=== PATIENT | male | born 1950 | race Caucasian/White ===

== ENCOUNTER → 2019-03-04 | Outpatient (CLI) | payer OTHER ==
[~2019-03-04] MED LIST: ALBU90OI; ASPI325 PO; ATENOLOL; CETI10; CHLOR; LISI20 PO; LISI5; OMEP20ER; SPIR50; WARF10; [UNRECOGNIZED DRUG - REMARK]
== END | disposition home or self-care (01) ==
LOC: LAB SHORT 10:21 → LAB 10:21
DX: L08.0 Pyoderma (principal)
CPT/HCPCS: 87070; 87205

== ENCOUNTER → 2021-01-19 | Outpatient (CLI) | payer MEDICARE ==
[2021-01-19 16:31] LABS: BASOPHILS ABSOLUTE AUTO 0.06 K/mm3 (0.00-0.23); BASOPHILS PERCENT AUTO 1 % (0-2); EOSINOPHILS ABSOLUTE AUTO 0.31 K/mm3 (0.00-0.68); EOSINOPHILS PERCENT AUTO 5 % (0-6); Hematocrit 24.7 % (37.0-53.0); Hemoglobin 8.4 g/dL (13.5-17.5); IMMATURE GRAN ABSOLUTE AUTO 0.04 K/mm3 (0.00-0.10); IMMATURE GRAN PERCENT AUTO 1 % (0-1); LYMPHOCYTES ABSOLUTE AUTO 1.36 K/mm3 (0.84-5.20); LYMPHOCYTES PERCENT AUTO 22 % (21-46); MONOCYTES ABSOLUTE AUTO 0.88 K/mm3 (0.16-1.47); MONOCYTES PERCENT AUTO 14 % (4-13); Mean Corpuscular HGB 31.5 pg (26.0-34.0); Mean Corpuscular Volume 93 fL (80-100); Mean Platelet Volume 10.2 fL (9.1-12.4); NEUTROPHILS PERCENT AUTO 58 % (41-73); Platelet Count 272 K/mm3 (150-400); RDW Coefficient Variation 15.8 % (11.7-14.2); RDW Standard Deviation 52.9 fL (35.1-46.3); Red Blood Cell Count 2.67 M/mm3 (4.30-5.90); White Blood Cell Count 6.25 K/mm3 (4.00-11.30)
[2021-01-19 16:41] LABS: Albumin, Blood 2.3 g/dL (3.4-5.0); Albumin/Globulin Ratio 0.7 (0.8-1.8); Bilirubin, Total 0.2 mg/dL (0.1-1.0); Bun/Creatinine Ratio 14.2 (12.0-20.0); Calcium, Blood 8.5 mg/dL (8.5-10.1); Creatinine, Blood 1.27 mg/dL (0.60-1.20); Globulin, Blood 3.2 g/dL (2.2-4.0); Potassium, Blood 4.8 mmol/L (3.5-5.5); Total Protein, Blood 5.5 g/dL (6.4-8.2)
== END | disposition home or self-care (01) ==
LOC: LAB 14:20 → LAB SHORT 14:20
PROVIDERS: Nurse Practitioner Family
DX: R29.898 Other symptoms and signs involving the musculoskeletal system (principal); F32.0 Major depressive disorder, single episode, mild
CPT/HCPCS: 80053; 85025

== ENCOUNTER → 2021-01-26 | Outpatient (CLI) | payer MEDICARE ==
[2021-01-26 16:37] LABS: Hematocrit 25.1 % (37.0-53.0); Hemoglobin 8.5 g/dL (13.5-17.5); Mean Corpuscular HGB 31.4 pg (26.0-34.0); Mean Corpuscular HGB Conc 33.9 g/dL (31.5-36.5); Mean Corpuscular Volume 93 fL (80-100); Mean Platelet Volume 10.5 fL (9.1-12.4); Platelet Count 153 K/mm3 (150-400); RDW Coefficient Variation 15.7 % (11.7-14.2); RDW Standard Deviation 52.2 fL (35.1-46.3); Red Blood Cell Count 2.71 M/mm3 (4.30-5.90); White Blood Cell Count 4.87 K/mm3 (4.00-11.30)
[2021-01-26 16:53] LABS: Alanine Aminotransfer (ALT/SGP 25 U/L (12-78); Albumin, Blood 2.5 g/dL (3.4-5.0); Albumin/Globulin Ratio 0.7 (0.8-1.8); Alk Phos 151 U/L (50-136); Anion Gap 12 mmol/L (6-16); Aspartate Aminotrans (AST/SGOT 30 U/L (12-37); Bilirubin, Total 0.3 mg/dL (0.1-1.0); Blood Urea Nitrogen 15 mg/dL (8-24); Bun/Creatinine Ratio 12.9 (12.0-20.0); CHOL/HDL RATIO 1.9; CO2, Blood 21 mmol/L (21-32); Calcium, Blood 8.5 mg/dL (8.5-10.1); Chloride, Blood 94 mmol/L (98-108); Cholesterol 120 mg/dL (50-200); Creatinine, Blood 1.16 mg/dL (0.60-1.20); Ferritin, Serum 247 ng/mL (26-388); Globulin, Blood 3.4 g/dL (2.2-4.0); Glomerular Filtration Rate >60 (60-); Glucose, Blood 68 mg/dL (70-99); HDL Cholesterol 64 mg/dL (>39); Iron Serum 74 ug/dL (65-175); LDL/HDL RATIO 0.7; Low Density Lipoprotein Chol 46 mg/dL (0-110); Percent Saturation 48.1 % (20.0-50.0); Potassium, Blood 4.6 mmol/L (3.5-5.5); Sodium, Blood 127 mmol/L (136-145); Total Iron Binding Capacity 154 ug/dL (250-450); Total Protein, Blood 5.9 g/dL (6.4-8.2); Triglycerides 48 mg/dL (30-160); Very Low Density Lipoprot Chol 9 mg/dL (6-32)
[2021-01-26 17:09] LABS: BASOPHILS PERCENT MAN 0 % (0-2); EOSINOPHILS ABSOLUTE MAN 0.29 K/mm3 (0.00-0.68); EOSINOPHILS PERCENT MAN 6 % (0-6); LYMPHOCYTES ABSOLUTE MAN 1.26 K/mm3 (0.84-5.20); LYMPHOCYTES PERCENT MAN 26 % (21-46); MONOCYTES ABSOLUTE MAN 0.38 K/mm3 (0.16-1.47); MONOCYTES PERCENT MAN 8 % (4-13); NEUTROPHILS ABSOLUTE MAN 2.92 K/mm3 (1.96-9.15); SEG NEUTROPHILS PERCENT MAN 60 % (41-73); TOTAL CELLS COUNTED 100
== END | disposition home or self-care (01) ==
LOC: LAB 15:41 → LAB SHORT 15:41
PROVIDERS: Nurse Practitioner Family
DX: Z13.220 Encounter for screening for lipoid disorders (principal); I12.9 Hypertensive chronic kidney disease with stage 1 through stage 4 chronic kidney disease, or unspecified chronic kidney disease; N18.30 Chronic kidney disease, stage 3 unspecified; D63.1 Anemia in chronic kidney disease; E87.1 Hypo-osmolality and hyponatremia; E88.09 Other disorders of plasma-protein metabolism, not elsewhere classified
CPT/HCPCS: 80053; 80061; 82728; 83540; 83550; 85025

== ENCOUNTER 2021-04-01 17:54 | Emergency (ER) | payer MEDICARE ==
[~2021-04-01] VITALS: Ht 185.4 cm; Wt 117.9 kg
[2021-04-01 18:44] LABS: Alanine Aminotransfer (ALT/SGP 32 U/L (12-78); Albumin, Blood 2.5 g/dL (3.4-5.0); Albumin/Globulin Ratio 0.7 (0.8-1.8); Alk Phos 200 U/L (50-136); Anion Gap 13 mmol/L (6-16); Aspartate Aminotrans (AST/SGOT 63 U/L (12-37); Bilirubin, Total 0.7 mg/dL (0.1-1.0); Blood Urea Nitrogen 14 mg/dL (8-24); CO2, Blood 23 mmol/L (21-32); Calcium, Blood 8.5 mg/dL (8.5-10.1); Chloride, Blood 93 mmol/L (98-108); Creatinine, Blood 0.93 mg/dL (0.60-1.20); Globulin, Blood 3.5 g/dL (2.2-4.0); Glomerular Filtration Rate >60 (60-); Glucose, Blood 73 mg/dL (70-99); Potassium, Blood 4.5 mmol/L (3.5-5.5); Sodium, Blood 129 mmol/L (136-145)
[2021-04-01 18:57] LABS: Source, Urine Clean Catch
[2021-04-01 19:01] LABS: Appearance, Urine Clear (Clear); Bilirubin, Urine Neg (Neg); Blood, Urine Neg (Neg); Color, Urine Yellow (P-Yellow); Glucose Qualitative, Urine Neg (Neg); Ketones, Urine Neg (Neg); Leukocyte Esterase, Urine 3+ (Neg); Nitrite, Urine Neg (Neg); Protein, Urine Neg (Neg); Urobilinogen, Urine NORM (Normal)
[2021-04-01 19:16] LABS: Bacteria Many /hpf; Red Blood Cells, Urine 0-2 /hpf (0-2); Squamous Epithelial Cells Rare /hpf (Few)
[2021-04-01 20:03] LABS: BASOPHILS ABSOLUTE AUTO 0.08 K/mm3 (0.00-0.23); BASOPHILS PERCENT AUTO 1 % (0-2); EOSINOPHILS ABSOLUTE AUTO 0.61 K/mm3 (0.00-0.68); EOSINOPHILS PERCENT AUTO 9 % (0-6); Hematocrit 28.7 % (37.0-53.0); Hemoglobin 10.2 g/dL (13.5-17.5); IMMATURE GRAN ABSOLUTE AUTO 0.04 K/mm3 (0.00-0.10); IMMATURE GRAN PERCENT AUTO 1 % (0-1); LYMPHOCYTES ABSOLUTE AUTO 1.03 K/mm3 (0.84-5.20); LYMPHOCYTES PERCENT AUTO 15 % (21-46); MONOCYTES ABSOLUTE AUTO 0.96 K/mm3 (0.16-1.47); MONOCYTES PERCENT AUTO 14 % (4-13); Mean Corpuscular HGB 32.9 pg (26.0-34.0); Mean Corpuscular HGB Conc 35.5 g/dL (31.5-36.5); Mean Corpuscular Volume 93 fL (80-100); Mean Platelet Volume 10.6 fL (9.1-12.4); NEUTROPHILS ABSOLUTE AUTO 4.02 K/mm3 (1.96-9.15); NEUTROPHILS PERCENT AUTO 60 % (41-73); Platelet Count 218 K/mm3 (150-400); RDW Coefficient Variation 16.9 % (11.7-14.2); RDW Standard Deviation 56.8 fL (35.1-46.3); White Blood Cell Count 6.74 K/mm3 (4.00-11.30)
[2021-04-01] MEDS ORDERED: CEFP200 PO (21:04)
== END 2021-04-01 23:00 | disposition home or self-care (01) ==
LOC: ER 17:54
PROVIDERS: Emergency Medicine
DX: R53.1 Weakness (principal); N39.0 Urinary tract infection, site not specified; B35.4 Tinea corporis; I10 Essential (primary) hypertension; E11.9 Type 2 diabetes mellitus without complications; J44.9 Chronic obstructive pulmonary disease, unspecified; L89.90 Pressure ulcer of unspecified site, unspecified stage; Z88.0 Allergy status to penicillin
CPT/HCPCS: 36415; 80053; 81001; 85025; 87086; 93005; 93010; 96365; 99285-25; A9270; J0696

== ENCOUNTER 2021-05-04 14:11 | Inpatient (IN) | payer MEDICARE ==
[~2021-05-04] VITALS: Ht 170.2 cm; Wt 94.4 kg
[~2021-05-04 14:11] MED LIST changes: +CEFP200 PO
[2021-05-04 14:59] LABS: Source, Urine Catheter
[2021-05-04 15:06] LABS: Appearance, Urine Clear (Clear); Bilirubin, Urine Neg (Neg); Blood, Urine 2+ (Neg); Color, Urine Yellow (P-Yellow); Glucose Qualitative, Urine Neg (Neg); Ketones, Urine 1+ (Neg); Leukocyte Esterase, Urine 2+ (Neg); Nitrite, Urine Neg (Neg); Protein, Urine 1+ (Neg); Specific Gravity, Urine 1.015 (1.003-1.022); Urobilinogen, Urine NORM (Normal)
[2021-05-04 15:28] LABS: Alanine Aminotransfer (ALT/SGP 41 U/L (12-78); Albumin/Globulin Ratio 0.5 (0.8-1.8); Alk Phos 317 U/L (50-136); Anion Gap 16 mmol/L (6-16); Aspartate Aminotrans (AST/SGOT 61 U/L (12-37); Bilirubin, Total 0.8 mg/dL (0.1-1.0); Blood Urea Nitrogen 40 mg/dL (8-24); Bun/Creatinine Ratio 19.7 (12.0-20.0); CO2, Blood 18 mmol/L (21-32); CPK Creatine Kinase 32 U/L (39-308); Calcium, Blood 8.1 mg/dL (8.5-10.1); Chloride, Blood 88 mmol/L (98-108); Creatinine, Blood 2.03 mg/dL (0.60-1.20); Ethanol (Alcohol), Blood, Med <3 mg/dL; Glomerular Filtration Rate 33 (60-); Glucose, Blood 112 mg/dL (70-99); Magnesium, Blood 2.5 mg/dL (1.6-2.4); Phosphorus, Blood 4.1 mg/dL (2.5-4.9); Potassium, Blood 5.8 mmol/L (3.5-5.5); Sodium, Blood 122 mmol/L (136-145); Troponin I <0.015 ng/mL (0.000-0.040)
[2021-05-04 15:29] LABS: Creatine Kinase MB <1.0 ng/mL (0.0-3.6); Creatine Kinase MB Index Unable to Calculate (0.0-4.0)
[2021-05-04 15:37] LABS: Bacteria Few /hpf; Renal Epithelial Rare /hpf (0-Rare); Squamous Epithelial Cells Mod /hpf (Few); WBC Cast 0-2 /lpf (0)
[2021-05-04 16:16] LABS: U Amphetamine Screen Not Detected; U Barbituate Screen Not Detected; U Benzodiazapine Screen Not Detected; U Buprenorphine Screen Not Detected; U Cannabinoids Screen Not Detected; U Cocaine Screen Not Detected; U Methadone Screen Not Detected; U Methamphetamine Screen Not Detected; U Opiates Screen Not Detected; U Oxycodone Screen Not Detected; U Phencyclidine Screen Not Detected; U Propoxyphene Screen Not Detected
[2021-05-04 16:24] LABS: SARS-Cov-2 (COVID-19) PCR, MMC NEGATIVE (NEGATIVE)
[2021-05-04 17:44] LABS: BASOPHILS ABSOLUTE AUTO 0.03 K/mm3 (0.00-0.23); BASOPHILS PERCENT AUTO 0 % (0-2); EOSINOPHILS PERCENT AUTO 0 % (0-6); Hematocrit 22.7 % (37.0-53.0); Hemoglobin 7.8 g/dL (13.5-17.5); IMMATURE GRAN ABSOLUTE AUTO 0.23 K/mm3 (0.00-0.10); IMMATURE GRAN PERCENT AUTO 1 % (0-1); LYMPHOCYTES ABSOLUTE AUTO 0.32 K/mm3 (0.84-5.20); LYMPHOCYTES PERCENT AUTO 2 % (21-46); MONOCYTES ABSOLUTE AUTO 0.86 K/mm3 (0.16-1.47); MONOCYTES PERCENT AUTO 5 % (4-13); Mean Corpuscular HGB 33.8 pg (26.0-34.0); Mean Corpuscular HGB Conc 34.4 g/dL (31.5-36.5); Mean Corpuscular Volume 98 fL (80-100); Mean Platelet Volume 10.1 fL (9.1-12.4); NEUTROPHILS ABSOLUTE AUTO 15.23 K/mm3 (1.96-9.15); NEUTROPHILS PERCENT AUTO 91 % (41-73); Platelet Count 418 K/mm3 (150-400); RDW Coefficient Variation 16.9 % (11.7-14.2); RDW Standard Deviation 59.8 fL (35.1-46.3); Red Blood Cell Count 2.31 M/mm3 (4.30-5.90); White Blood Cell Count 16.67 K/mm3 (4.00-11.30)
[2021-05-04 23:40] LABS: Bun/Creatinine Ratio 19.1 (12.0-20.0); Calcium, Blood 7.2 mg/dL (8.5-10.1); Creatinine, Blood 2.09 mg/dL (0.60-1.20); Percent Saturation 9.3 % (20.0-50.0); Potassium, Blood 4.8 mmol/L (3.5-5.5)
[2021-05-05 03:22] LABS: Hematocrit 21.8 % (37.0-53.0); Hemoglobin 7.5 g/dL (13.5-17.5); Mean Corpuscular HGB 34.1 pg (26.0-34.0); Mean Corpuscular HGB Conc 34.4 g/dL (31.5-36.5); Mean Corpuscular Volume 99 fL (80-100); Platelet Count 453 K/mm3 (150-400); RDW Coefficient Variation 16.8 % (11.7-14.2)
[2021-05-05 03:39] LABS: BAND PERCENT MAN 10 % (0-8); BASOPHILS PERCENT MAN 0 % (0-2); EOSINOPHILS PERCENT MAN 0 % (0-6); LYMPHOCYTES PERCENT MAN 2 % (21-46); MONOCYTES ABSOLUTE MAN 0.76 K/mm3 (0.16-1.47); MONOCYTES PERCENT MAN 3 % (4-13); NEUTROPHILS ABSOLUTE MAN 24.13 K/mm3 (1.96-9.15); SEG NEUTROPHILS PERCENT MAN 85 % (41-73); TOTAL CELLS COUNTED 100
[2021-05-05 03:40] LABS: Albumin, Blood 1.6 g/dL (3.4-5.0); Albumin/Globulin Ratio 0.5 (0.8-1.8); Bilirubin, Total 0.6 mg/dL (0.1-1.0); Bun/Creatinine Ratio 19.4 (12.0-20.0); Calcium, Blood 7.8 mg/dL (8.5-10.1); Creatinine, Blood 2.11 mg/dL (0.60-1.20); Globulin, Blood 3.5 g/dL (2.2-4.0); Potassium, Blood 4.6 mmol/L (3.5-5.5); Total Protein, Blood 5.1 g/dL (6.4-8.2)
--- NOTE | 2021-05-05 06:00 | NUR ---
SHIFT SUMMARY PT. WAS A NEW ADMIT. DX WITH SEVERE SEPSIS. CAME IN WITH LOW B/P'S. IS A/OX3 AND FORGETFUL. HAS A PATEL WITH YELLOW/SUSANNA URINE. ON TELE AFIB IN LOW 100'S. UPPER EXT. AND LOWER EXT. WEAK PULSES. ABLE TO MOVE UPPER AND EXT AND UNABLE TO MOVE LOWER EXT. CAN ONLY WIGGLE TOES. IS ON BEDREST. REPOSITINED Q2HRS. HAS SEVERE WOUNDS ON BUTTOCK AREA, THIGHS AND LOWER EXTREMITIES. PICTURES AND MEASUREMENTS WERE TAKEN AND IN PT'S CHART. PT. WAS GIVEN A BEDBATH. CLEANED WOUNDS, DRIED SKIN, AND WOUND CARE WAS DONE. HAS DRESSINGS IN PLACE. PT. BP AND MAP WAS LOW THIS AM AND PT. CONT. TO BE TACHY. MD AWARE AND ORDERS WERE GIVEN.
[2021-05-05 06:57] LABS: Source, Urine Catheter
[2021-05-05 07:04] LABS: Appearance, Urine Clear (Clear); Bilirubin, Urine Neg (Neg); Blood, Urine Neg (Neg); Color, Urine Yellow (P-Yellow); Glucose Qualitative, Urine Neg (Neg); Ketones, Urine Neg (Neg); Leukocyte Esterase, Urine 1+ (Neg); Nitrite, Urine Neg (Neg); Protein, Urine Neg (Neg); Urobilinogen, Urine NORM (Normal)
[2021-05-05 07:14] LABS: Bacteria Rare /hpf; Calcium Oxalate Crystals Rare /hpf; Other Crystals Mod /hpf; Squamous Epithelial Cells Rare /hpf (Few); Uric Acid Crystals Few /hpf
--- NOTE | 2021-05-05 09:25 | NUR ---
Phone call recieved from APS regarding dishcarge planing. Pt being evicted from appartment. He has been qualified for medicaid. Will need placement at time of discharge. Notified care management of this update. APS foster care case manager name Amanda Garcia, .
--- NOTE | 2021-05-05 09:28 | NUR ---
pt laying in bed awake a/ox3, a bit forgetful, cooperative with care, follows commands well, denies pain unless moved, lungs are clear, dim in bases, resp even and unlabored, no cough noted, sats are 98-100% on r/a, hrirr, tele in place running afib per monitor, see strip, edema noted to b/l le, iv site to r and l ac's, infusing 1/2 ns at 100mls/hr, and precedex gtt titrating prn, b/p's are low, continually monitoring, picc line being placed for precedex gtt, btx4, abd round soft nontender, voids via pacheco cath draining clear yellow urine, skin has extensive wounds to buttocks and lower ext. moves upper ext well, unable to move lower ext., is wheelchair bound at home, lives alone, dressings are in place for lower ext and mepilex placed to coccyx, negro to left eye, is blind in right eye, call light in reach.
[2021-05-05 09:34] LABS: Bun/Creatinine Ratio 18.9 (12.0-20.0); Calcium, Blood 7.3 mg/dL (8.5-10.1); Creatinine, Blood 2.01 mg/dL (0.60-1.20); Potassium, Blood 4.5 mmol/L (3.5-5.5)
--- NOTE | 2021-05-05 12:10 | NUR ---
b/p is much better now, turned levaphed down to 6, continue to monitor and titrate. pt eating lunch. call light in reach.
--- NOTE | 2021-05-05 18:33 | NUR ---
leif feels cold most of the day and has many blankets on, room temp turned up. he has been shifted to the side with pillows, but doesn't tolerate it well, continues on levophed at 6, maintaining well. no further changes this shift. call light in reach.
[2021-05-05 19:33] LABS: Bun/Creatinine Ratio 19.6 (12.0-20.0); Calcium, Blood 7.2 mg/dL (8.5-10.1); Creatinine, Blood 1.89 mg/dL (0.60-1.20); Potassium, Blood 4.3 mmol/L (3.5-5.5)
[2021-05-06 05:17] LABS: BASOPHILS ABSOLUTE AUTO 0.01 K/mm3 (0.00-0.23); BASOPHILS PERCENT AUTO 0 % (0-2); EOSINOPHILS ABSOLUTE AUTO 0.19 K/mm3 (0.00-0.68); EOSINOPHILS PERCENT AUTO 1 % (0-6); Hemoglobin 6.2 g/dL (13.5-17.5); IMMATURE GRAN PERCENT AUTO 1 % (0-1); LYMPHOCYTES ABSOLUTE AUTO 1.33 K/mm3 (0.84-5.20); LYMPHOCYTES PERCENT AUTO 8 % (21-46); MONOCYTES ABSOLUTE AUTO 1.38 K/mm3 (0.16-1.47); MONOCYTES PERCENT AUTO 9 % (4-13); Mean Corpuscular HGB 34.6 pg (26.0-34.0); Mean Corpuscular Volume 99 fL (80-100); NEUTROPHILS ABSOLUTE AUTO 12.75 K/mm3 (1.96-9.15); NEUTROPHILS PERCENT AUTO 80 % (41-73); Platelet Count 375 K/mm3 (150-400); RDW Coefficient Variation 16.9 % (11.7-14.2); RDW Standard Deviation 61.1 fL (35.1-46.3); Red Blood Cell Count 1.79 M/mm3 (4.30-5.90); White Blood Cell Count 15.86 K/mm3 (4.00-11.30)
[2021-05-06 05:19] LABS: Hematocrit 17.7 % (37.0-53.0)
[2021-05-06 05:40] LABS: Albumin, Blood 1.3 g/dL (3.4-5.0); Albumin/Globulin Ratio 0.4 (0.8-1.8); Bilirubin, Total 0.4 mg/dL (0.1-1.0); Bun/Creatinine Ratio 20.7 (12.0-20.0); Creatinine, Blood 1.69 mg/dL (0.60-1.20); Globulin, Blood 2.9 g/dL (2.2-4.0); Potassium, Blood 3.8 mmol/L (3.5-5.5); Total Protein, Blood 4.2 g/dL (6.4-8.2)
--- NOTE | 2021-05-06 06:06 | NUR ---
LYING IN SEMI FOWLERS WITH BOTH HIPS FLOATED ON PILLOWS. REMAINS AAO X3 WITH MILD CONFUSION AT TIMES. STARTED OUT THE NIGHT APPREAING SAD AND POSS WITHDRAWN. BY END OF SHIFT PT IS TELLING JOKES AND SPEAKING ABOUT HIS MOM WHO WAS A NURSE IN [place] IN THE . DRESSINGS TO BLE AND SACRUM REMAIN INTACT. AM LABS DRAWN FROM PICC LINE USING STERILE TECHNIQUE, TOLERATED WELL. CRITICAL LOW HCT OF 17.7, HGB OF 6.2. PT INFORMED NURSING THAT HE WILL NOT BE ABLE TO RECIEVED ANY BLOOD OR BLOOD PRODUCTS DUE TO BEING A JEHOVA'S WITNESS. DR. GAN CONTACTED AND GIVEN CRITICAL VALUE AND INFORMED OF WHAT PT STATED. NO NEW ORDERS NOTED. PT REMAINS COLD AND IS COVERED BY SEVERAL BLANKETS FOR COMFORT. DENIES PAIN, DISCOMFORT, OR FURTHER NEEDS AT THIS TIME. SAFETY MEASURES IN PLACE. WILL CONTINUE TO MONITOR AND GIVE HAND OFF TO ONCOMING SHIFT USING SBAR DURING BEDSIDE REPORT.
[2021-05-06 10:39] LABS: Percent Saturation 38.5 % (20.0-50.0)
[2021-05-06 14:28] LABS: Vancomycin, Trough 21.4 ug/mL (5.0-10.0)
--- NOTE | 2021-05-06 17:48 | NUR ---
SUMMARY PT SITTING UP IN BED, JUST FINISHED HIS DINNER, POOR APPETITE, PT REMAINS ON PRESSORS, CONT TO DECLINE ANY BLOOD PRODUCTS, NO S/S BLEEDING, PT HAS HAD SEVERAL LOOSE LIQUID STOOLS, DARK BROWN, NO S/S BLOOD, RECTAL TUBE PLACED, PT ERNESTO WELL, UPDATED PT'S FRIEND ON THE PHONE PER HIS REQUEST, PT'S TANISHA AREA AND BACKSIDE REMAIN EXCORIATED, PT MED PER EMAR FOR C/O PAIN, DENIES ANY SOB, WILL CONT TO MONITOR
[2021-05-06 20:58] LABS: Stool Occult Blood Guaiac 1 Neg (Neg)
--- NOTE | 2021-05-06 22:03 | NUR ---
ASSUMED CARE OF PT AT 1900. PER PT HE HAS A HEADACHE, AND MODERATELY ANXIOUS, NOTED TREMORS IN BL ARMS - CIWA 13. ADMINISTERING PRN ATIVAN AND REASSESS PER ORDER.
--- NOTE | 2021-05-07 00:28 | NUR ---
ATTEMPTED TO REASSESS CIWA AND PATIENT WAS ASLEEP. WILL MONITOR FOR CONTINUED SYMPTOMS.
[2021-05-07 03:53] LABS: BASOPHILS ABSOLUTE AUTO 0.01 K/mm3 (0.00-0.23); BASOPHILS PERCENT AUTO 0 % (0-2); EOSINOPHILS ABSOLUTE AUTO 0.28 K/mm3 (0.00-0.68); EOSINOPHILS PERCENT AUTO 4 % (0-6); Hematocrit 25.1 % (37.0-53.0); Hemoglobin 8.5 g/dL (13.5-17.5); IMMATURE GRAN ABSOLUTE AUTO 0.12 K/mm3 (0.00-0.10); IMMATURE GRAN PERCENT AUTO 2 % (0-1); LYMPHOCYTES ABSOLUTE AUTO 1.03 K/mm3 (0.84-5.20); LYMPHOCYTES PERCENT AUTO 13 % (21-46); MONOCYTES ABSOLUTE AUTO 0.85 K/mm3 (0.16-1.47); MONOCYTES PERCENT AUTO 11 % (4-13); Mean Corpuscular HGB 33.7 pg (26.0-34.0); Mean Corpuscular HGB Conc 33.9 g/dL (31.5-36.5); Mean Corpuscular Volume 100 fL (80-100); Mean Platelet Volume 8.9 fL (9.1-12.4); NEUTROPHILS ABSOLUTE AUTO 5.72 K/mm3 (1.96-9.15); NEUTROPHILS PERCENT AUTO 71 % (41-73); Platelet Count 331 K/mm3 (150-400); RDW Coefficient Variation 16.4 % (11.7-14.2); RDW Standard Deviation 59.7 fL (35.1-46.3); Red Blood Cell Count 2.52 M/mm3 (4.30-5.90); White Blood Cell Count 8.01 K/mm3 (4.00-11.30)
[2021-05-07 04:09] LABS: Albumin, Blood 1.4 g/dL (3.4-5.0); Anion Gap 8 mmol/L (6-16); Blood Urea Nitrogen 29 mg/dL (8-24); Bun/Creatinine Ratio 22.1 (12.0-20.0); CO2, Blood 22 mmol/L (21-32); Chloride, Blood 94 mmol/L (98-108); Creatinine, Blood 1.31 mg/dL (0.60-1.20); Glomerular Filtration Rate 54 (60-); Glucose, Blood 88 mg/dL (70-99); Phosphorus, Blood 1.8 mg/dL (2.5-4.9); Potassium, Blood 3.5 mmol/L (3.5-5.5); Sodium, Blood 124 mmol/L (136-145)
--- NOTE | 2021-05-07 05:53 | NUR ---
Patient a/ox4 but forgetful. Flat affect. Chronic alcohol use (3-4 glasses of wine/whiskey a day). CIWA implemented d/t increase in symptoms. Fine crackles on top and dim in bases, 100% on RA. Afib avg 95
--- NOTE | 2021-05-07 06:25 | NUR ---
Patient given PRN fentanyl in hopes of being able to reposition and change pad underneath him. Patient states the pain is still 7/10 and would like not to be repositioned to and hopes today they will find another way to make him comfortable.
--- NOTE | 2021-05-07 09:34 | NUR ---
UPDATE PT REFUSED TO HAVE BED LAY BACK AND TURN PT TO HAVE BACKSIDE CLEANED OF LIQUID STOOL. PT WAS INFORMED OF THE RISK IF FURTHER SKIN BREAKDOWN AND INFECTION RISK. PT STILL REFUSED TO BE TURNED. RECTAL TUBE IN PLACE DRAINING TO GRAVITY WITH SOME LEAKAGE OUT OF ANUS. DISPOSABLE CHUCKS PLACED UNDER PT FRONT FRONT AND SHOVED UNDER PT TOLERATED FOR SOME ABSORBTION OF THE LIQUID STOOL. SCROTOM IS SWOLLEM. PT ASKED NURSE TO INFORM HABITAT MANAGEMENT COORDINATOR NOT TO TRY AND TURN PT EVERY 2 HOURS. INFORMATION WILL FORWARDED TO HABITAT MANAGEMENT COORDINATOR.
--- NOTE | 2021-05-07 18:31 | NUR ---
SHIFT SUMMARY PT IS A/OX4; SLOW TO RESPOND WITH FLAT AFFECT. PT REFUSED Q2 TURNS ALL SHIFT DUE TO PAIN OF HIS LOWER BODY; LEGS, HIPS, AND BUTTOCKS. PT REMAINED IN AFIB WITH HR RANGING 90-100'S. PT O2 SATS >100% ON ROOM AIR T/O SHIFT. PT LEVOPHED AT 10 T/O SHIFT. PT VSS T/O SHIFT. CIWA SCORES RANGED 2-5 T/O SHIFT. PT PAIN TREATMENT WAS NOT THERAPEUTIC; DISCUSSED WITH DR NOLAN WHO UPPED THE DOSE OF FENTANYL TO 50-100MCG Q3. THIS RN DISCUSSED WITH PT ABOUT THE SURGICAL DR COMING BY TOMORROW FOR AN ASSESSMENT OF HIS SACRAL AREA WITH PT BEING PREMEDICATED FOR PAIN; PT RESPONDED "WE CAN TRY." STOOL COLLECTED AND SENT TO LAB FOR CHECK FOR C-DIF; AWAITING RESULTS. PT HAS BILATERAL +3 EDEMA OF LOWER EXTREMITIES. PT HAS PATEL DRAINING TO GRAVITY; YELLOW URINE. PT HAS RECTAL TUBE DRAINING TO GRAVITY; DARK BROWN LIQUID STOOL. BOWELS ARE VERY HYPERACTIVE. PT STATED THAT MEDICAL STAFF CAN UPDATE MAIDA MIRZA, CLOSE PERSONAL FRIEND, ON "ALL MEDICAL INFORMATION." APLLIATIVE NURSE, NANCY, INFORMED OF PT SITUATION AND THE NEED OF PLACEMENT FOR HOUSING UPON DISCHARGE DUE TO PT BEING EVICTED FROM PLACE OF RESIDENCE.
--- NOTE | 2021-05-07 19:42 | NUR ---
Assumed care of patient at 1900. Report showed patient still refused turns despite increased Fentanyl dosage. Explained the need to turn him as his rectal tube is dislodged, and has open wounds on buttocks/coccyx.
--- NOTE | 2021-05-07 20:00 | NUR ---
Patient refused to allow surgical consult to look at wounds today on dayshift or allow turning and cleaning (flexiseal leak). Asked the patient if he would like to see the pictures of his wounds since he is unable to look, he wanted to see them. Reinforced the need to turn and clean the wounds & feces and the risk of further infection and extending LOS in the hospital. Patient agreed as long as pain can be adequately controlled before.
--- NOTE | 2021-05-07 20:01 | NUR ---
Spoke to Dr. Kiran who ordered Dilaudid 2mg IV q2p. If BP falls - switch back to the Fentanyl 100mcg order.
[2021-05-07 21:10] LABS: C DIFFICILE DNA NEGATIVE (Negative)
--- NOTE | 2021-05-07 22:34 | NUR ---
Patient was given the 2mg Dilaudid as ordered, complete bed change and wound cleaning/bandaging done. About an hour in the patient began having respiratory depression and Narcan was administered. Called Dr. Kiran and MANDO Mendez and keep Fentanyl for the future and a new PRN order for Narcan.
[2021-05-08 03:43] LABS: Hematocrit 17.1 % (37.0-53.0); Hemoglobin 5.7 g/dL (13.5-17.5)
--- NOTE | 2021-05-08 03:52 | NUR ---
Patients H&H came back critically low. Hgb: 5.7 and Hct:17.1. Patient has refused blood transfusion d/t being of the Jehavoah's Witness artie.
[2021-05-08 04:04] LABS: Albumin, Blood 1.5 g/dL (3.4-5.0); Anion Gap 9 mmol/L (6-16); Blood Urea Nitrogen 24 mg/dL (8-24); Bun/Creatinine Ratio 23.1 (12.0-20.0); CO2, Blood 22 mmol/L (21-32); Calcium, Blood 7.1 mg/dL (8.5-10.1); Chloride, Blood 93 mmol/L (98-108); Creatinine, Blood 1.04 mg/dL (0.60-1.20); Glomerular Filtration Rate >60 (60-); Glucose, Blood 104 mg/dL (70-99); Magnesium, Blood 1.9 mg/dL (1.6-2.4); Phosphorus, Blood 2.7 mg/dL (2.5-4.9); Potassium, Blood 3.5 mmol/L (3.5-5.5); Sodium, Blood 124 mmol/L (136-145); Uric Acid, Blood 7.4 mg/dL (3.5-7.2)
--- NOTE | 2021-05-08 04:15 | NUR ---
Patient is a/ox4 but forgetful at times. Patient reports still having major pain on his buttocks and legs, post-dilaudid and narcan the patient was able to sleep for a few hours which he hasn't been able to do in awhile according to him. Still refuses q2 turns. Afib avg 100. SBP has been 90's-100's on 14 of (titrated up from 10 at beginning of shift). Bilateral lower extremity pitting edema still +3 with +1 faint pedal pulses. Borboryghmi noted and less liquid stool compared to yesterday and more semi-solid. Granda draining to gravity yellow/clear urine but greatly decreased amount. H&H critically low, but patient refuses blood products d/t sabianist reasons.
--- NOTE | 2021-05-08 08:17 | NUR ---
UPDATE PT REFUSED Q2 TURNS. THIS RN ASKED IF IT WAS SOMETHING WE COULD TRY TODAY AND PT SAID "I WOULD RATHER NOT." PT WAS INFORMED THAT THE SURGICAL DR MAY COME BY TODAY AND THAT WE CAN PRE-MEDICATE FOR PAIN, PT IS RECEPTIVE TO THE SURGICAL DR COMING BY.
--- NOTE | 2021-05-08 09:55 | NUR ---
BLOOD ORDER CANCELELD THIS RN CALLED DR NOLAN AT 0907 ABOUT PT HAVING BLOOD ORDERED. DR NOLAN INFORMED THIS RN THAT SHE HAS CANCELED THE ORDER DUE TO THE PT BEING A JEHOVAH WITNESS. THIS RN CONTACTED BLOOD BANK AT 0974 TO INFORM THEM OF THE CANCELATION OF THE ORDER.
--- NOTE | 2021-05-08 14:11 | NUR ---
UPDATE AT 1050, DR LEDBETTER CALLED TO INFORM THIS RN THAT HE WAS HEADED TO PT ROOM IN ROUGHLY 10 MINUTES. PT WAS PRE-MEDICATED WITH 100MCG FENTANYL. PT PAIN LEVEL WAS REPORTED TO VERY LITTLE CHANGE AFTER FENTANYL WAS GIVEN. PT WAS ROLLED TO LEFT SIDE FOR DR LEDBETTER TO ASSESS SKIN BREAKDOWN OF SACRAL AREA AND LEGS. PT WAS LOUDLY VOCALIZING HIS PAIN BY SAYING "OW, OW, OW." PT WAS VERY VOCAL OF PAIN WITH SLIGHTEST MOVEMENT OF HIS RIGHT LEG. PT WOULD CALM WITH SOME REASSURANCE FROM NURSE. AFTER PT WOUNDS WERE COVERED WITH NON-ADHERANT BANDAGES, PT WAS ROLLED TO SUPINE POSITION. PILLOWS WERE PLACED UNDER PT TO RELEIVE SOME PRESSURE OFF OF SACRUM. PT LIMBS ELEVATED WITH PILLOWS. PT REPORTS "I FEEL BETTER THAN I DID."
--- NOTE | 2021-05-08 15:29 | NUR ---
UPDATE AT 1520, THIS RN CALLED DR NOLAN ABOUT PT PAIN THAT HAS PREVENTED GENERAL ADL CARE. DR NOLAN PLACED AN ORDER FOR 50MCG FENTANYL PATCH.
--- NOTE | 2021-05-08 17:52 | NUR ---
SHIFT SUMMARY PT A/OX4, SLOW TO RESPOND. PT BP STABLE T/O SHIFT WITH O2 SATS >97%, AFIB RANGING 110-130'S. PT PAIN HAS BEEN REPORTED CONSTANT, DR LARKIN ORDERED FENTANYL PATCH. SURGICAL DR GURROLA WAS ABLE TO COME ASSESS PT SACRAL WOUNDS AND LEG WOUNDS TODAY, PT REPORTED PAIN DURING ASSESSMENT. WOUNDS RE-DRESSED WITH NON-ADHERANT BANDAGES. PT STILL REFUSING TO BE TURNED DUE TO PAIN. LEVOPHED RUNNING AT 14. RECTAL TUBE INPLACE DRAINING TO GRAVITY; DARK BROWN LIQUID STOOL. PATEL IN PLACE DRAINING TO GRAVITY; YELLOW URINE.
--- NOTE | 2021-05-08 20:14 | NUR ---
Assumed care of patient at 1900. Patient has been increasingly more tachy in the 140-150's with chronic afib. SBP began dipping below 90, per emar increased Levo to 15 and maintaining above [address] Harris and digoxin and vasopressin ordered. Patients H&H critically low, but declines blood products d/t sabianism artie.
--- NOTE | 2021-05-09 03:53 | NUR ---
Temporarily disconnected pt from Levo line for a line draw. Patients BP drops to 68/46 (54) within 2 minutes for the draw. Restarted patient on the Levo running at 15 to help recover, then 5 minutes later dropped Levo to 13. VSS and MAP over 60.
[2021-05-09 03:55] LABS: BASOPHILS ABSOLUTE AUTO 0.01 K/mm3 (0.00-0.23); BASOPHILS PERCENT AUTO 0 % (0-2); EOSINOPHILS ABSOLUTE AUTO 0.38 K/mm3 (0.00-0.68); EOSINOPHILS PERCENT AUTO 4 % (0-6); Hematocrit 20.6 % (37.0-53.0); Hemoglobin 6.9 g/dL (13.5-17.5); IMMATURE GRAN ABSOLUTE AUTO 0.49 K/mm3 (0.00-0.10); IMMATURE GRAN PERCENT AUTO 6 % (0-1); LYMPHOCYTES ABSOLUTE AUTO 1.44 K/mm3 (0.84-5.20); LYMPHOCYTES PERCENT AUTO 16 % (21-46); MONOCYTES ABSOLUTE AUTO 1.04 K/mm3 (0.16-1.47); MONOCYTES PERCENT AUTO 12 % (4-13); Mean Corpuscular HGB 33.3 pg (26.0-34.0); Mean Corpuscular HGB Conc 33.5 g/dL (31.5-36.5); Mean Corpuscular Volume 100 fL (80-100); Mean Platelet Volume 8.8 fL (9.1-12.4); NEUTROPHILS ABSOLUTE AUTO 5.56 K/mm3 (1.96-9.15); NEUTROPHILS PERCENT AUTO 62 % (41-73); Platelet Count 376 K/mm3 (150-400); RDW Coefficient Variation 15.3 % (11.7-14.2); Red Blood Cell Count 2.07 M/mm3 (4.30-5.90); White Blood Cell Count 8.92 K/mm3 (4.00-11.30)
[2021-05-09 04:11] LABS: Albumin, Blood 1.4 g/dL (3.4-5.0); Anion Gap 8 mmol/L (6-16); Blood Urea Nitrogen 20 mg/dL (8-24); Bun/Creatinine Ratio 20.4 (12.0-20.0); CO2, Blood 24 mmol/L (21-32); Chloride, Blood 95 mmol/L (98-108); Creatinine, Blood 0.98 mg/dL (0.60-1.20); Glomerular Filtration Rate >60 (60-); Glucose, Blood 91 mg/dL (70-99); Magnesium, Blood 1.6 mg/dL (1.6-2.4); Phosphorus, Blood 2.1 mg/dL (2.5-4.9); Potassium, Blood 2.7 mmol/L (3.5-5.5); Sodium, Blood 127 mmol/L (136-145)
[2021-05-09 04:47] LABS: BAND PERCENT MAN 4 % (0-8); BASOPHILS PERCENT MAN 0 % (0-2); EOSINOPHILS ABSOLUTE MAN 0.26 K/mm3 (0.00-0.68); EOSINOPHILS PERCENT MAN 3 % (0-6); LYMPHOCYTES ABSOLUTE MAN 0.89 K/mm3 (0.84-5.20); LYMPHOCYTES PERCENT MAN 10 % (21-46); METAMYELOCYTE ABSOLUTE MAN 0.17 K/mm3 (0.00-0.00); METAMYELOCYTE PERCENT MAN 2 % (0-0); MONOCYTES ABSOLUTE MAN 0.53 K/mm3 (0.16-1.47); MONOCYTES PERCENT MAN 6 % (4-13); NEUTROPHILS ABSOLUTE MAN 7.04 K/mm3 (1.96-9.15); SEG NEUTROPHILS PERCENT MAN 75 % (41-73); TOTAL CELLS COUNTED 100
--- NOTE | 2021-05-09 05:35 | NUR ---
Morning labs came back with a K of 2.7 and Phos of 2.1, Dr. Vanegas notified and ordered K-Phos 20mm stat.
--- NOTE | 2021-05-09 06:21 | NUR ---
Patient has been a/ox4 but drowsy for entire shift. Patient has persistent 8/10 BLE pain. Fine crackles in upper lobes and dim in lower. Afib 120-140's which he was given Digoxin IV and stays around 120's. SBP 90-100, MAP over 60 with Levo at 13. Vasopressin on standby if needed. +2 pitting edema of upper and lower extremities (slight improvement from previous days). Faint pedal pulses and slow cap refill. Rectal tube is patent but has very little output and bed is clean, borborygmi is noted. Granda is patent and draining to gravity yellow urine with minimal sediment noted, producing great output of 1700ml. New bandages applied to wounds on [facility], was not assessed by myself this shift. Important to note, turning off the Levo to draw blood from the line causes patients BP & MAP to decompensate within 2 minutes. Will report to gilbert RN.
--- NOTE | 2021-05-09 07:18 | NUR ---
ASSUMED CARE: PT RESTING IN BED AT THIS TIME. ON RA, AFIB AT 113 ON TELE AT THIS TIME. LEVOPHED GTT AT 13 MCG THROUGH PICC LINE. PATEL AND RECTAL TUBE IN PLACE. RESTING IN BED WITH RN PLACEMENT AT BEDSIDE
--- NOTE | 2021-05-09 08:56 | NUR ---
PT RESTING IN BED, STATES HE IS COMFORTABLE. DURING MED PASS, INFORMED PT THAT THERE WAS A MEDICATION ORDERED TO GO ON HIS COCCYX WOUNDS AND PT DECLINED, STATING HE DID NOT WANT TO MOVE BECAUSE IT HURTS TOO MUCH. INFORMED HIM THAT IF WE DO NOT PROVIDE MEDICATIONS ORDERED, THEN HIS WOUNDS MAY NOT HEAL APPROPRIATELY. PT STATED UNDERSTANDING. WAS UNABLE TO ASSESS COCCYX WOUND DUE TO THIS REASONING WELL. CALL TO PALLIATIVE CARE NURSE TO EVALUATE CASE DUE TO PT'S DENYING CARE AND PAIN. NIGHT RN STATED THAT PAIN MEDICATION WAS PROVIDED YESTERDAY AND THEN PT REQUIRED NARCAN IMMEDIATELY AFTER. OSTEOPATHIC RESIDENT AWARE
--- NOTE | 2021-05-09 10:30 | NUR ---
DR NOLAN AWARE THAT PALLIATIVE CARE CONSULT CALLED DUE TO PT REFUSING CARE AND REPOSITIONING. REFUSED WOUND CARE ASSESSMENT AND CARE THIS AM DUE TO PAIN BUT HAS HISTORY OF INTOLERANCE TO MEDICATIONS. SPOKE WITH PALLIATIVE CARE NURSE WHO PLANS TO SPEAK WITH PT THIS SHIFT
--- NOTE | 2021-05-09 14:12 | NUR ---
Made a visit this morning to pt. He is alert, pleasant and cooperative. His admission diagnosis was Severe Sepsis with lactic acidosis. He was then found to have a stage 2 wound on her perineumm, that is likely getting worse. He has not been able to tolerate any wound care, as the pain becomes "unbearable" according to Remy. So he declines to move at all, if he can help it. However, yesterday the staff attempted to medicate him to do wound care and ended up having to give narcan, as the pain was still there even on higher doses of pain medication. After a lengthy discussion with Remy regarding code status, and the difference between full code and DNR, he chose DNR, as he says to "allow natural " lines up well with his beliefs. He is also aware of his lower H&H yesterday, and will not be receiving blood or blood products at any time. He request I call Piotr Pedraza, a person he goes to gnosticism with. Remy has named Piotr as his [facility] career representative if he is unable to speak and further decisions has to be made.
[2021-05-09 17:15] LABS: Anion Gap 8 mmol/L (6-16); Blood Urea Nitrogen 16 mg/dL (8-24); Bun/Creatinine Ratio 17.5 (12.0-20.0); CO2, Blood 25 mmol/L (21-32); Calcium, Blood 7.2 mg/dL (8.5-10.1); Chloride, Blood 95 mmol/L (98-108); Creatinine, Blood 0.91 mg/dL (0.60-1.20); Glomerular Filtration Rate >60 (60-); Glucose, Blood 89 mg/dL (70-99); Potassium, Blood 3.5 mmol/L (3.5-5.5); Sodium, Blood 128 mmol/L (136-145)
--- NOTE | 2021-05-09 18:34 | NUR ---
SHIFT SUMMARY: PT HAS BEEN ON 13MCG OF LEVOPHED ALL SHIFT THROUGH PICC LINE. PALLIATIVE CARE SPOKE WITH HIM AND PT IS NOW DNR STATUS. PALLIATIVE CARE INSTRUCTED NURSE ON PAIN MANAGEMENT REGIMEN IN AN ATTEMPT TO GET PAIN MANAGEMENT TO PT'S GOAL SO THAT HE MAY BE AGREEABLE TO CARE. PT HAS BEEN REFUSING REPOSITIONING AND WOUND CARE ALL SHIFT. PLAN IS FOR HOME ON HOSPICE AND/OR SNF
[2021-05-10 05:34] LABS: Hematocrit 19.4 % (37.0-53.0); Hemoglobin 6.6 g/dL (13.5-17.5)
[2021-05-10 06:07] LABS: Albumin, Blood 1.3 g/dL (3.4-5.0); Anion Gap 8 mmol/L (6-16); Blood Urea Nitrogen 14 mg/dL (8-24); Bun/Creatinine Ratio 15.2 (12.0-20.0); CO2, Blood 27 mmol/L (21-32); Calcium, Blood 7.2 mg/dL (8.5-10.1); Chloride, Blood 97 mmol/L (98-108); Creatinine, Blood 0.92 mg/dL (0.60-1.20); Glomerular Filtration Rate >60 (60-); Glucose, Blood 82 mg/dL (70-99); Magnesium, Blood 1.5 mg/dL (1.6-2.4); Phosphorus, Blood 2.6 mg/dL (2.5-4.9); Potassium, Blood 3.2 mmol/L (3.5-5.5); Sodium, Blood 132 mmol/L (136-145)
--- NOTE | 2021-05-10 06:13 | NUR ---
SHIFT SUMMARY ASSUMED CARE OF PT AT 1900. PT IS A/OX4 BUT SPEAK IS SLOW. PT TRIED TO REFUSE CARE T/O THE SHIFT BUT THIS NURSE WAS ABLE TO CONVINCE PT TO HAVE A BEDBATH AND TO HAVE HIS WOUNDS CLEANED. PT PAIN WAS MANAGED WITH FENTYAL AND TRAMADOL. LUNG OUNDS DIMINISHED. HEART SOUNDS IRREGULAR, TELE SHWS AFIV WITH PVC'S. PT HAS A RECTAL TUBE AND PATEL, DRAINING WITH GRAVITY. PT BP WAS STABLE UNTIL PT REACHED 5 ON THE LEVOPHED, IN WICH HE WAS TURNED BACK TO 0.7. CALL LIGHT IN REACH, BED IN LOWEST POSITION.
--- NOTE | 2021-05-10 15:59 | NUR ---
Pt changed his code status to DNR yesterday. POL hanging on doorframe awaiting signature from Dr. Olivera. Dr Olivera and I discussed pt's pain status last evening, and she will increase his fentanyl patch dose, and lower the breakthrough dose. He also has Tramadol 50mg every 6 hrs as needed for breakthrough pain. The plan last evening was to begin 100mcg Fentanyl patch, tramadol every 6 hour and try fentanyl prn IV if Fentanyl patch and tramadol not effective. Spoke to Dimple in care management, and we discussed pt requiring placement, with hospice on discharge. Pt was agreeable to this plan yesterday, but he does wish to speak to his Jehovah Witness tower switch operator, Piotr Pedraza. I have attempted to reach him multiple times. Will continue to try and reach her.
--- NOTE | 2021-05-10 17:37 | NUR ---
PT PRESENTS WITH FLAT AFFECT, SLIGHTLY DELAYED SPEECH, AOX4, TMAX OF 98.3, REPORTS 8/10 PAIN AT ALL ASSESSMENTS, ON RA SATTING 99-100% AND CLEAR LUNG SOUNDS WITH DIMINISHED BASES, AFIB IN 90'S TO 120'S WITH IMPROVING EDEMA IN ALL 4 EXTREMITIES (+3 YESTERDAY, WRINKLY +1 TODAY), MODERATE WEAKNESS IN BUE AND SIGNIFICANT WEAKNESS IN BLE, FULL THICKNESS WOUNDS THROUGHOUT BUTTOCKS, POSTERIOR THIGHS, AND CALVES DRESSED WITH NONADHERENT PADS, MEDIHONEY, AND KERLIX GAUZE, HYPERACTIVE BORBORYGMI IN ALL ABDOMINAL QUADRANTS, INCREASINGLY FIRM STOOL, RECTAL TUBE, RENAL DIET, EATING 15-50% OF EACH MEAL WITH CBG WDL ON ACHS MONITORING, PATEL DRAINING CLEAR YELLOW URINE, TRIPLE LUMEN PICC IN LUE WITH INTACT DRESSING DATED 05/05/2021, NOREPINEPHRINE INFUSING AT STEADY RATE OF 7, PURPLE DNR WRISTBAND IN PLACE ON RUE, PT REQUESTED/RECEIVED TRAMADOL 2X DURING SHIFT, PALLIATIVE CARE NURSE ROUNDED ON PT SEVERAL TIMES AND DISCUSSED GOALS OF CARE, PT DENIES ADDITIONAL CONCERNS AT THIS TIME
--- NOTE | 2021-05-10 23:07 | NUR ---
PT HAVING LOW BLOOD PRESSURES - 77/50 AT 2300 WITH HR AROUND 100-110. HOSPITALIST CONTACTED REGARDING POSSIBLE FLUIDS. BOLUS OF 500 ML ORDERED. WILL RECHECK BP AFTER BOLUS AND TOLD TO CONTACT DR NOLAN AGAIN IF NO IMPROVEMENT IN BP.
[2021-05-11 04:14] LABS: Hematocrit 20.6 % (37.0-53.0); Hemoglobin 6.7 g/dL (13.5-17.5)
[2021-05-11 04:39] LABS: Albumin, Blood 1.4 g/dL (3.4-5.0); Anion Gap 5 mmol/L (6-16); Blood Urea Nitrogen 13 mg/dL (8-24); Bun/Creatinine Ratio 15.2 (12.0-20.0); CO2, Blood 29 mmol/L (21-32); Calcium, Blood 7.2 mg/dL (8.5-10.1); Chloride, Blood 94 mmol/L (98-108); Creatinine, Blood 0.85 mg/dL (0.60-1.20); Glomerular Filtration Rate >60 (60-); Glucose, Blood 259 mg/dL (70-99); Magnesium, Blood 1.6 mg/dL (1.6-2.4); Phosphorus, Blood 2.7 mg/dL (2.5-4.9); Potassium, Blood 3.7 mmol/L (3.5-5.5); Sodium, Blood 128 mmol/L (136-145)
--- NOTE | 2021-05-11 06:36 | NUR ---
MANAGER SPORTS SUMMARY ADMITTED FOR SEPSIS. PT IS A DNR/LIMITED. PT HAD CONTINUAL LOW BLOOD PRESSURE THROUGHOUT THE SHIFT - MEDICATED WITH MIDIDRINE AND 500ML NS BOLUS. PT ALSO HAD CONTINUED EPISODE OF TACHYCARDIA IN THE 170S AT THE BEGINNING OF THE SHIFT - MEDICATED WITH ONE DOSE OF IV CARDIZEM AND ONE DOSE OF PRN ORAL CARDIZEM WITH IMPROVEMENT TO LOW 100S AFTER THE 500 ML FLUID BOLUS. PT REFUSING ALL POSITION CHANGES AND CARE DURING THIS SHIFT. NO OTHER CONCERNS. ISOLATION MAINTAINED.
--- NOTE | 2021-05-11 08:35 | NUR ---
UPDATE PT REFUSING TO BE TURNED. ABLE TO SIT PT UPRIGHT FOR BREAKFAST DUE TO PT LEANING TO THE LEFT. PT HAS BEEN RELUCTANT TO ANSWER MOST QUESTIONS REGARDING CARE OR PAIN MANAGEMENT. PT WILL ANSWER SOME YE/NO QUESTIONS BUT WHEN QUESTIONS GO INTO MORE DETAIL, PT GOES SILENT.
--- NOTE | 2021-05-11 10:48 | NUR ---
UPDATE AT 0830, THIS RN DISCUSS WITH DR SCRUGGS THAT THE PT HAD FEET THAT ARE WRINKLED DUE TO THE LASIX THAT THE PT HAS ORDERED. PT PREVIOUSLY HAD PITTING EDEMA. THE URINE OF THE PT IS LIGHT YELLOW. DR SCRUGGS INFORMED THIS RN THAT THE LASIX WILL BE DISOCNTINUED. DR SHAH ALSO INSTRUCTED THIS RN TO WEAN PT OFF OF LEVOPHED THAT IS CURRENTLY RUNNING AT 9MCG. WILL CONTINUE TO MONITOR.
--- NOTE | 2021-05-11 11:12 | NUR ---
CONTACTED PALLIATIVE THIS RN CONTACTED NANCY IN PALLIATIVE CARE TO INFORM THEM THAT THE PT HAS BEEN VERY WITHDRAWN TODAY. THE PT TYPICALLY WOULD EXPRESS PAIN AND COMFORT NEEDS AND WOULD ALSO ANSWER QUESTIONS THAT WERE ASKED BY MEDICAL STAFF, BUT LATELY THE PT SHHUTS DOWN AFTER A FEW YES/NO QUESTIONS. I INFORMED NANCY THAT A CLOSE FRIEND, MAIDA, WAS CONTACTED AND IS EXPECTED TO VISIT TODAY IN HOPES OF GETTING PT TO BE MORE RESCEPTIVE. NANCY INFORMED THIS RN THAT SHE HAS LEFT MANY MESSAGES WITH JESSICA MIRZA, WHOSE NUMBER IS ON THE PT'S WHITE BOARD, BUT NO RESPOSE FROM JESSICA. PT CELL PHONE HAS BEEN SOUNDING OFF WITH PHONE CALLS AND TEXTS, PT DOES NOT ANSWER THEM. WHEN PT BECOMES SILENT WITH MEDICAL STAFF, HE STARES STRAIGHT FORWARD AND EYES BECOME WATERY.
--- NOTE | 2021-05-11 12:40 | NUR ---
UPDATE AT AROUND 1135, PT FRIEND, MAIDA MIRZA, ARRIVED TO THE UNIT TO VISIT WITH PT. PT WAS MORE TALKATIVE TO HIS FRIEND THAN HE IS WITH MEDICAL STAFF, ALTHOUGH STILL HESITANT TO ANSWER SOME QUESTION BY FRIEND. WHEN THIS RN WOULD ENTER THE PT ROOM FOR MEDICATIONS OR VITAL SIGNS, PT WOULD BECOME QUIET AGAIN. PT BP'S APPEARED TO BE LABILE SO THIS RN TOOK A MANUAL BP GETTING A RESULT OF 112/65. PT LUNCH TRAY IS SITTING IN FRONT OF HIM, PT HAS NOT TOUCHED TRAY. WILL CONTINUE TO MONITOR.
--- NOTE | 2021-05-11 13:32 | NUR ---
CARE UPDATE AT 1309, NANCY RN FROM PALLIATIVE CAME TO SEE PT. PT ANSWERED FEW QUESTIONS FROM NANCY. NANCY APRROACHED THIS RN AND ALEX RN ABOUT PT'S CONDITION. THIS RN INFORMED NANCY THAT THE PT HAS BEEN EXPERIENCING TREMORS SINCE THIS MORNING. NANCY TRIED TO ASSESS PT PAIN LEVELS, PT DID NOT RESPOND. NANCY INFORMED THIS RN AND ALEX RN THAT SHE HAS ASKED THE PT IF HE WANTED TO GO ON COMFORT CARE. THIS RN ASKED IF HE ANSWERED HER ON THE COMFORT CARE, NANCY RE-ENTERED THE PT ROOM AND ASKED TO VERIFY IF HE WISHED TO GO ONTO COMFORT CARE; PT ANSWERED "YES."
--- NOTE | 2021-05-11 15:12 | NUR ---
Pt's bedside RN stated concern today regarding pt's mood. He states he seems to be "down", and more emotionally withdrawn than he has been since admission. I have continued to be unable to reach Piotr Pedraza, pt's religion leader. However, his friend Lee is able to see him for a visit today. This was due to to the recent changes in pt's mentation. Lee tells us Remy does look "much worse" than when he was admitted. Unsure of the etiology, but pt has a new onset of what appears to be a tremor in his hands. When his hands begin to tremor, his affect flattens, and he stares ahead, not speaking. This lasts about 15 seconds at a time before he once again is able to answer questions correctly. He states he is unaware of this happening and states he has no history of seizures. I did ask Remy today if he is ready to change his status to comfort care today, as we have been discussing this, but he had wanted to speak to Piotr. However, he states speaking to Lee was enough to help with his decision. Lee is in agreement that this is best, as he also states pt's condition has been declining for some time, and he is no longer experiencing quality of life, and living with severe pain. Staff remain unable to perform wound dressing or position changes as patient has continued to refuse due to pain and anxiety. Received verbal order for Comfort Care from Dr. Kiran today. Placing the order now. Bedside RN, patient and friend Lee are also aware.
--- NOTE | 2021-05-11 18:10 | NUR ---
PT IS WITHDRAWN. REPORTS PAIN BUT CANNOT GIVE A GENERAL LOCATION OF PAIN OR RATE THE PAIN LEVEL. PT REPORTING THAT HE IS CURRENTLY NOT HUNGRY, DINNER TRAY AT BEDSIDE.
--- NOTE | 2021-05-11 18:16 | NUR ---
SHIFT SUMMARY PT A/O X2-3, WITHDRAWN AND FORGETFUL. PT REMAINED IN A-FIB WITH RATES 80-100'S. PTO2 SATS >91% ON ROOM AIR T/O SHIFT. PT RAN A SLIGHT TEMP DURING SHIFT. DURING MORNING ASSESSMENT, PT DISPLAYED NEW ONSET TREMORS, DR SCRUGGS WAS AT BEDSIDE. PT WAS LESS TALKATIVE TODAY COMPARED TO PREVIOUS DAYS THAT THIS RN CARED FOR HIM. PT WOULD ANSWER 1-2 YES/NO QUESTIONS AND THEN STOP ANSWERING QUESTIONS FOR A FEW MINUTES. PT WOULD STARE STRIGHT FORWARD. PT WAS WEANED OFF LEVOPHED AT 1805; LEVOPHED ON STANDBY, BP STABLE. PT MOVED TO COMFORT CARE, SEE NANCY WILSON'S NOTES @ 1512. PT CLOSE FRIEND MAIDA VISITED, PT NOT VERY TALKATIVE TO FRIEND EITHER. PT REFUSED Q2 TURNS OR BED CHANGES.
--- NOTE | 2021-05-11 21:00 | NUR ---
REPORT GIVEN TO MERRY VORA ON MEICAL UNIT. PT TO BE TRANSFERED TO ROOM 360. WILL CONTINUE TO MONITOR.
--- NOTE | 2021-05-11 21:30 | NUR ---
PREMEDICATED FOR TRANSPORT. ALL BELONGINGS GATHERED AND TAKEN WITH PT TO ROOM 360. UPDATED REPORT GIVEN TO SENIOR MANAGER MMCOE AT BEDSIDE.
--- NOTE | 2021-05-12 06:40 | NUR ---
SHIFT SUMMARRY PATIENT SLEPT MOST OF THE NIGHT. DENIES PAIN AND DISCOMFORT. ONLY AGREES TO MINIMAL POSITION CHANGE FOR COMFORT. REPORTS GENERALISED PAIN THIS MORNING. PRN TRAMADOL AND TYLENOL GIVEN WITH GOOD EFFECTS.
--- NOTE | 2021-05-12 13:32 | NUR ---
PT RESTINQ QUIETLY, STATES HE IS COMFORTABLE FOR NOW. ASSISTED WITH BREAKFAST, BOOSTED UP IN BED. TURNED TO THE SIDE AFTER
--- NOTE | 2021-05-12 13:34 | NUR ---
PREMEDICATED WITH FENTANYL FOR DRESSING CHANGE. CLEANSED GLUT ULCERATIONS WITH NS, APPLIED HONEYMED TO ESCHAR, XEROFORM GAUZE TO ALL OTHER OPEN AREAS, EXUDRY AND SECURED WITH MEFIX AND NETTED PANTIES. PATEL CATH CARE. DEFLATED BALOON OF RECTAL TUBE 5 MIN. AND REINFLATED. LE CLEANSED WITH SOAP AND CATER, XEROFORM WEBBED INBWEEN TOES. XEROFORM TO OPEN AREAS OF POST CALF L AND R. WRAPPED WITH KERLEX. ORAL CARE AND LINEN CHANGE.
--- NOTE | 2021-05-12 13:41 | NUR ---
RESTING COMFORTABLY IN BED, TOLERATED HALF OF LUNCH TRAY. STATES PAIN MEDS EFFECTIVE.
[2021-05-12] MEDS ORDERED: ACET325 PO (15:26)
[2021-05-12 15:27] LABS: SARS-Cov-2 (COVID-19) PCR, MMC NEGATIVE (NEGATIVE)
[2021-05-12] MEDS ORDERED: DURAGESIC1 EAC1 TOP (15:27)
[2021-05-12] MEDS ORDERED: ATROPINE SULFATE2 M5 SL (15:27)
[2021-05-12] MEDS ORDERED: MEDIHONEY TOP (15:28)
[2021-05-12] MEDS ORDERED: MORP20L SL (15:28)
[2021-05-12] MEDS ORDERED: Ativan1 MG PO (15:28)
[2021-05-12] MEDS ORDERED: PANT40 PO (15:29)
[2021-05-12] MEDS ORDERED: NALOXONE H0.4 MG/1 M IV (15:29)
[2021-05-12] MEDS ORDERED: TRANSDERM-SCOP1 EAC7 TOP (15:30)
[2021-05-12] MEDS ORDERED: TRAM50 PO (15:30)
== END 2021-05-12 17:38 | disposition hospice, home (50) | DRG 871 ==
LOC: ER 14:11 → PCU 23:32 → SURS 23:40 → PCU 05-05 18:06 → MEDS 05-11 21:29
PROVIDERS: Emergency Medicine; Internal Medicine; Internal Medicine Nephrology; ADMIT Hospitalist
PROC: 3E033XZ Introduction of Vasopressor into Peripheral Vein, Percutaneous Approach (ICD-10-PCS; principal; 2021-05-05)
DX: A41.9 Sepsis, unspecified organism (principal); L89.154 Pressure ulcer of sacral region, stage 4; R65.21 Severe sepsis with septic shock; E43 Unspecified severe protein-calorie malnutrition; E87.2 Acidosis; N17.9 Acute kidney failure, unspecified; E87.1 Hypo-osmolality and hyponatremia; L03.317 Cellulitis of buttock; Z68.41 Body mass index [BMI] 40.0-44.9, adult; Z20.822 Contact with and (suspected) exposure to COVID-19; Z51.5 Encounter for palliative care; Z66 Do not resuscitate; K70.11 Alcoholic hepatitis with ascites; F10.20 Alcohol dependence, uncomplicated; E87.5 Hyperkalemia; N43.3 Hydrocele, unspecified; E87.6 Hypokalemia; D64.9 Anemia, unspecified; J44.9 Chronic obstructive pulmonary disease, unspecified; Z87.442 Personal history of urinary calculi; Z86.718 Personal history of other venous thrombosis and embolism; Z90.49 Acquired absence of other specified parts of digestive tract; Z98.890 Other specified postprocedural states; Z98.84 Bariatric surgery status; N18.9 Chronic kidney disease, unspecified; E11.22 Type 2 diabetes mellitus with diabetic chronic kidney disease; Z79.899 Other long term (current) drug therapy; E88.09 Other disorders of plasma-protein metabolism, not elsewhere classified; E83.39 Other disorders of phosphorus metabolism; E86.0 Dehydration; E83.42 Hypomagnesemia
CPT/HCPCS: 36415; 36569; 51702; 70450; 71045; 72220; 74177; 80048; 80053; 80069; 80202; 81001; 82272; 82436; 82533; 82550; 82553; 82570; 82607; 82728; 82746; 82947; 83036; 83540; 83550; 83605; 83690; 83735; 83880; 83930; 83935; 84100; 84145; 84300; 84443; 84484; 84540; 84550; 85014; 85018; 85025; 86850; 86900; 86901; 86923; 87040; 87077; 87086; 87186; 87493; 93005; 93010; 94762; 96365-59; 96366-59; 96367-59; 96368; 99285-25; A9270; C1751; G0480; J0610; J0692; J0881; J1160; J1170; J1644; J1650; J1940; J1956; J2060; J2310; J2543; J2916; J3010; J3370; J3411; J3480; J7030; J7040; J7050; J7060; J7120; Q9967; U0004